=== PATIENT | male | born 1985 | race Caucasian/White ===

== ENCOUNTER 2024-01-26 14:40 | Emergency (ER) | payer MEDICAID, OTHER ==
[2024-01-26] MEDS ORDERED: Sodium Chloride 0.9% 10 ML Syringe FLUSH PRN (14:54)
[2024-01-26] MEDS: Aspirin 81 MG Tab.Chew PO ONE (15:05)
[2024-01-26] MEDS: Nitroglycerin 0.4 MG Tab.SL SL ONE (15:06)
[2024-01-26 15:07] LABS: BASOPHILS ABSOLUTE AUTO 0.04 10^3/uL (0.00-0.10); BASOPHILS PERCENT AUTO 0.3 % (0.0-1.0); EOSINOPHILS ABSOLUTE AUTO 0.11 10^3/uL (0.10-0.30); EOSINOPHILS PERCENT AUTO 0.8 % (1.0-3.0); HEMATOCRIT 43.8 % (40.0-52.0); HEMOGLOBIN 14.4 g/dL (13.0-17.0); IMMATURE GRAN ABSOLUTE AUTO 0.03 10^3/uL (0.00-0.50); IMMATURE GRAN PERCENT AUTO 0.2 % (0.0-5.0); LYMPHOCYTES ABSOLUTE AUTO 1.32 10^3/uL (1.00-4.00); LYMPHOCYTES PERCENT AUTO 9.6 % (20.0-40.0); MEAN CORPUSCULAR HEMOGLOBIN 28.3 pg (27.0-31.0); MEAN CORPUSCULAR HGB CONC 32.9 g/dL (32.0-36.0); MEAN CORPUSCULAR VOLUME 86.1 fL (82.0-92.0); MEAN PLATELET VOLUME 9.5 fL (7.4-10.4); MONOCYTES PERCENT AUTO 7.3 % (2.0-8.0); NEUTROPHILS ABSOLUTE AUTO 11.27 10^3/uL (2.50-7.00); NEUTROPHILS PERCENT AUTO 81.8 % (50.0-70.0); PLATELET COUNT,PLT 551 10^3/uL (150-400); RED BLOOD CELL COUNT 5.09 10^6/uL (4.50-6.00); RED CELL DISTRIBUTION WIDTH 12.4 % (11.5-14.5); WHITE BLOOD CELL COUNT,WBC 13.77 10^3/uL (5.00-10.00)
[2024-01-26] MEDS: Nitroglycerin 0.4 MG Tab.SL SL PRN (15:16)
[2024-01-26 15:28] LABS: B-TYPE NATRIURETIC PEPTIDE,BNP < 5 pg/mL (0-100)
[2024-01-26 15:33] LABS: ALANINE AMINOTRANSFERASE,ALT 29 U/L (14-63); ALBUMIN 3.48 g/dL (3.40-5.00); ALKALINE PHOSPHATASE 132 U/L (46-116); ANION GAP 15.5 mmol/L (5-15); ASPARTATE AMNIOTRANSFERASE,AST 13 U/L (15-37); BILIRUBIN TOTAL 0.8 mg/dL (0.2-1.0); BLOOD UREA NITROGEN,BUN 16 mg/dL (7-18); CALCIUM 8.7 mg/dL (8.7-10.3); CARBON DIOXIDE,CO2 24.4 mmol/L (21.0-32.0); CHLORIDE,CL 103 mmol/L (98-107); CREATININE 0.93 mg/dL (0.51-1.17); EST CRCL DRUG DOSING (CG) 113.58 mL/min; GLUCOSE RANDOM 100 mg/dL (70-140); POTASSIUM,K 3.9 mmol/L (3.5-5.1); PROTEIN TOTAL,TP 8.1 g/dL (6.4-8.2); SODIUM,NA 139 mmol/L (136-145)
[2024-01-26 15:34] LABS: ESTIMATED GFR 107 mL/min (>=60)
[2024-01-26] MEDS: Sodium Chloride 0.9% 100 ML IV SCH (16:26)
[2024-01-26] MEDS: Iopamidol 755 Mg/ML 100 ML Bottle IV ONE (16:26)
== END 2024-01-26 18:58 | disposition home or self-care (01) ==
LOC: KA.ED 14:40
DX: R07.89 Other chest pain (principal); R79.89 Other specified abnormal findings of blood chemistry; K21.9 Gastro-esophageal reflux disease without esophagitis; Z87.898 Personal history of other specified conditions; I10 Essential (primary) hypertension
CPT/HCPCS: 36415; 71045; 71275; 80053; 83880; 84484; 85025; 85379; 93010; 99284; 99285; A9270-GY; J3490; Q9967